=== PATIENT | female | born 1940 | race Caucasian/White ===

== ENCOUNTER 2018-07-07 19:11 | Inpatient (IN) ==
[2018-07-07] MEDS ORDERED: IBUPROFEN 800 MG TABLET PO STA (19:33)
[2018-07-07] MEDS ORDERED: SODIUM CHLORIDE 0.9% 500 ML IV STA (19:33)
[2018-07-07] MEDS ORDERED: ALBUTEROL/IPRATROPIUM 3 ML NEB RESP TX STA (20:24)
[2018-07-07 20:25] LABS: Basophils % 0.2 % (0.0-0.8); Hematocrit 37.2 VOL% (35.7-47.0); Immature Granulocytes % 0.7 %; Immature Granulocytes Absolute 0.07 #; Lymphocytes # 1.1 10*3/uL (1.4-4.0); Lymphocytes % 10.5 % (21.3-54.2); Mean Corpuscular HGB Conc 32.3 GM/DL (32-36); Mean Corpuscular Hemoglobin 31 PG (27-34); Mean Corpuscular Volume 95.1 FL (87-102); Mean Platelet Volume 11.2 FL (9.6-12.0); Monocytes # 0.7 10*3/uL (0.11-0.8); Monocytes % 6.3 % (1.7-12.7); Neutrophils # 8.8 10*3/uL (1.4-7.4); Neutrophils % 82.3 % (38.7-73.9); Platelet Count 135 T/CUMM (130-400); Red Blood Count 3.91 MC/CUMM (3.8-5.5); Red Cell Distribution Width 12.6 % (9.3-17.3); White Blood Count 10.7 T/CUMM (4-12)
[2018-07-07] MEDS ORDERED: cefTRIAXone 1,000 MG in SODIUM CHLORIDE 0.9% 100 ML IV STA (20:25)
[2018-07-07] MEDS ORDERED: AZITHROMYCIN INJ 500 MG in SODIUM CHLORIDE 0.9% 250 ML IV STA (20:25)
[2018-07-07 20:34] LABS: INR 0.9
[2018-07-07 20:40] LABS: Apearance,Urine CLOUDY (Clear); Bilirubin,Urine Negative (Negative); Blood, Urine Small mg/dL (Negative); Glucose,Urine (UA) Negative (Negative); Hyaline Casts,Urine 4 /LPF (0-3); Ketones,Urine 5 mg/dL (Negative); Mucus,Urine Occasional /LPF (Occasional); Nitrite,Urine Negative (Negative); Protein,Urine 30 MG/DL; RBC,Urine 2 /HPF (0-4); Squamous Epithelial Cell,Urine Occasional /HPF (0-10); Urine Color Amber (Yellow); Urine Urobilinogen < 2.0 EU/DL (0.2-1.0); WBC,Urine 5 /HPF (0-6)
[2018-07-07 20:44] LABS: Alanine Aminotransferase 26 U/L (13-56); Albumin 3.3 G/DL (3.4-5.0); Alkaline Phosphatase 63 U/L (45-117); Aspartate Amino Transferase 67 U/L (0-37); Blood Urea Nitrogen 27 MG/DL (7-18); Calcium 8.8 MG/DL (8.5-10.1); Glucose 92 MG/DL (74-106); Osmolality,Calculated 272.2 MOS/KG (273-304); Potassium 4.1 MMOL/L (3.5-5.1); Sodium 134 MMOL/L (136-145); Total Protein 6.9 G/DL (6.4-8.3); Troponin I < 0.015 NG/ML (0.00-0.045)
[2018-07-07 20:47] LABS: Band Neutrophils 5 % (0-10); Lymphocytes 9 % (20-55); Platelet Estimate Normal; Segmented Neutrophils 82 % (50-85); Total Cells Counted 100
[2018-07-07 20:48] LABS: Hypochromasia Slight
[2018-07-07] MEDS ORDERED: ACETAMINOPHEN 325 MG TABLET PO PRN (21:21)
[2018-07-07] MEDS ORDERED: ONDANSETRON 4 MG/2 ML VIAL IV PRN (21:21)
[2018-07-07] MEDS ORDERED: guaiFENesin/DM ER 600-30 MG TABLET PO PRN (21:21)
[2018-07-07] MEDS ORDERED: POLYETHYLENE GLYCOL POWDER 17 GM PACK PO PRN (22:06)
[2018-07-07] MEDS ORDERED: FAMOTIDINE 20 MG TABLET PO PRN (22:06)
[2018-07-07] MEDS ORDERED: NON-FORMULARY MEDICATION (Alendronate Sodium [Alendronate Sodium] 70 MG) PO SCH (22:15)
[2018-07-07] MEDS ORDERED: oxyCODONE/ACETAMINOPHEN 5-325 MG TABLET PO PRN (22:47)
[2018-07-07] MEDS: LACTATED RINGERS 1,000 ML IV SCH (23:13)
[2018-07-07] MEDS: GABAPENTIN 400 MG CAPSULE PO SCH (23:15)
[2018-07-08] MEDS: ALBUTEROL/IPRATROPIUM 3 ML NEB RESP TX SCH ×4 (00:25→19:51)
[2018-07-08] MEDS: ZALEPLON 5 MG CAPSULE PO PRN ×2 (00:45→21:22)
[2018-07-08 05:13] LABS: Basophils % 0.3 % (0.0-0.8); Hematocrit 32.9 VOL% (35.7-47.0); Hemoglobin 10.5 GM/DL (12.0-16.0); Immature Granulocytes % 0.3 %; Immature Granulocytes Absolute 0.02 #; Lymphocytes # 1.6 10*3/uL (1.4-4.0); Lymphocytes % 20.5 % (21.3-54.2); Mean Corpuscular HGB Conc 31.9 GM/DL (32-36); Mean Corpuscular Hemoglobin 30 PG (27-34); Mean Corpuscular Volume 94.8 FL (87-102); Mean Platelet Volume 11.1 FL (9.6-12.0); Monocytes # 0.4 10*3/uL (0.11-0.8); Neutrophils # 5.7 10*3/uL (1.4-7.4); Neutrophils % 73.9 % (38.7-73.9); Platelet Count 115 T/CUMM (130-400); Red Blood Count 3.47 MC/CUMM (3.8-5.5); Red Cell Distribution Width 12.6 % (9.3-17.3); White Blood Count 7.7 T/CUMM (4-12)
[2018-07-08 05:27] LABS: Calcium 8.1 MG/DL (8.5-10.1); Osmolality,Calculated 276.8 MOS/KG (273-304); Potassium 3.7 MMOL/L (3.5-5.1)
[2018-07-08 05:51] LABS: Band Neutrophils 2 % (0-10); Lymphocytes 23 % (20-55); Platelet Estimate Adequate; Segmented Neutrophils 73 % (50-85); Total Cells Counted 100
[2018-07-08] MEDS: GABAPENTIN 400 MG CAPSULE PO SCH ×3 (06:27→21:25)
[2018-07-08] MEDS ORDERED: INFLUENZA VIRUS VACCINE 0.5 ML SYRINGE IM ONE (09:00)
[2018-07-08] MEDS: ENOXAPARIN 40 MG/0.4 ML SYRINGE SUBCUT SCH (10:12)
[2018-07-08] MEDS: MORPHINE ER 15 MG TABLET PO SCH ×2 (10:16→21:22)
[2018-07-08] MEDS: DOCUSATE SODIUM 100 MG CAPSULE PO SCH ×2 (10:16→21:22)
[2018-07-08] MEDS: LACTATED RINGERS 1,000 ML IV SCH ×2 (10:19→21:29)
[2018-07-08] MEDS: AZITHROMYCIN 250 MG TABLET PO SCH (21:21)
[2018-07-08] MEDS: cefTRIAXone 1,000 MG in SYRINGE 1 EACH IV SCH (22:29)
[2018-07-09] MEDS: ALBUTEROL/IPRATROPIUM 3 ML NEB RESP TX SCH ×4 (00:07→18:54)
[2018-07-09] MEDS: GABAPENTIN 400 MG CAPSULE PO SCH ×3 (07:27→21:42)
[2018-07-09] MEDS: DOCUSATE SODIUM 100 MG CAPSULE PO SCH ×2 (08:28→21:40)
[2018-07-09] MEDS: ENOXAPARIN 40 MG/0.4 ML SYRINGE SUBCUT SCH (08:28)
[2018-07-09] MEDS: MORPHINE ER 15 MG TABLET PO SCH ×2 (08:28→21:40)
[2018-07-09] MEDS: LACTATED RINGERS 1,000 ML IV SCH (15:12)
[2018-07-09] MEDS: AZITHROMYCIN 250 MG TABLET PO SCH (21:41)
[2018-07-09] MEDS: cefTRIAXone 1,000 MG in SYRINGE 1 EACH IV SCH (21:42)
[2018-07-10] MEDS: LACTATED RINGERS 1,000 ML IV SCH ×3 (00:53→19:20)
[2018-07-10] MEDS: ALBUTEROL/IPRATROPIUM 3 ML NEB RESP TX SCH ×4 (02:12→19:50)
[2018-07-10] MEDS: GABAPENTIN 400 MG CAPSULE PO SCH ×3 (05:54→19:44)
[2018-07-10] MEDS: DOCUSATE SODIUM 100 MG CAPSULE PO SCH ×2 (09:18→19:44)
[2018-07-10] MEDS: ENOXAPARIN 40 MG/0.4 ML SYRINGE SUBCUT SCH (09:18)
[2018-07-10] MEDS: MORPHINE ER 15 MG TABLET PO SCH ×3 (09:18→20:42)
[2018-07-10] MEDS: cefTRIAXone 1,000 MG in SYRINGE 1 EACH IV SCH (23:10)
[2018-07-10] MEDS: AZITHROMYCIN 250 MG TABLET PO SCH (23:17)
[2018-07-11] MEDS: DOCUSATE SODIUM 100 MG CAPSULE PO SCH ×3 (00:13→20:32)
[2018-07-11] MEDS: GABAPENTIN 400 MG CAPSULE PO SCH ×4 (00:14→20:32)
[2018-07-11] MEDS: ALBUTEROL/IPRATROPIUM 3 ML NEB RESP TX SCH ×4 (01:46→19:56)
[2018-07-11] MEDS: LACTATED RINGERS 1,000 ML IV SCH ×2 (05:23→17:18)
[2018-07-11] MEDS: ENOXAPARIN 40 MG/0.4 ML SYRINGE SUBCUT SCH (09:05)
[2018-07-11] MEDS: MORPHINE ER 15 MG TABLET PO SCH ×2 (09:06→20:32)
[2018-07-11] MEDS: AZITHROMYCIN 250 MG TABLET PO SCH (20:31)
[2018-07-11] MEDS: cefTRIAXone 1,000 MG in SYRINGE 1 EACH IV SCH (20:33)
[2018-07-12] MEDS: ALBUTEROL/IPRATROPIUM 3 ML NEB RESP TX SCH ×2 (01:25→06:55)
[2018-07-12] MEDS: GABAPENTIN 400 MG CAPSULE PO SCH (05:27)
[2018-07-12] MEDS: LACTATED RINGERS 1,000 ML IV SCH (05:41)
[2018-07-12] MEDS: ENOXAPARIN 40 MG/0.4 ML SYRINGE SUBCUT SCH (09:23)
[2018-07-12] MEDS: DOCUSATE SODIUM 100 MG CAPSULE PO SCH (09:23)
[2018-07-12] MEDS: MORPHINE ER 15 MG TABLET PO SCH (09:43)
[2018-07-12 11:22] VITALS: BP 126/63
== END 2018-07-12 12:45 | disposition hospice, home (50) | DRG 195 ==
LOC: N.ED 19:11 → SUATTDRO 21:21 → N.EDINP 21:21 → N.2E 22:39
PROVIDERS: ADMIT Internal Medicine Geriatric Medicine; ATTEND Internal Medicine

== ENCOUNTER 2018-07-29 09:02 | Observation (INO) ==
[2018-07-29] MEDS ORDERED: ONDANSETRON 4 MG/2 ML VIAL IV PRN (09:10)
[2018-07-29 09:47] LABS: Basophils # 0.1 10*3/uL (0.0-0.2); Eosinophils # 0.2 10*3/uL (0.0-0.87); Eosinophils % 3.3 % (0.00-10.9); Hematocrit 34.8 VOL% (35.7-47.0); Hemoglobin 11.1 GM/DL (12.0-16.0); Immature Granulocytes % 0.2 %; Immature Granulocytes Absolute 0.01 #; Lymphocytes # 1.6 10*3/uL (1.4-4.0); Lymphocytes % 31.8 % (21.3-54.2); Mean Corpuscular HGB Conc 31.9 GM/DL (32-36); Mean Corpuscular Hemoglobin 31 PG (27-34); Mean Corpuscular Volume 96.1 FL (87-102); Mean Platelet Volume 11.2 FL (9.6-12.0); Monocytes # 0.6 10*3/uL (0.11-0.8); Monocytes % 11.2 % (1.7-12.7); Neutrophils # 2.7 10*3/uL (1.4-7.4); Neutrophils % 52.5 % (38.7-73.9); Platelet Count 172 T/CUMM (130-400); Red Blood Count 3.62 MC/CUMM (3.8-5.5); Red Cell Distribution Width 13.3 % (9.3-17.3); White Blood Count 5.1 T/CUMM (4-12)
[2018-07-29 10:14] LABS: Albumin 3.3 G/DL (3.4-5.0); Bilirubin,Total 0.4 MG/DL (0.2-1.0); Calcium 8.9 MG/DL (8.5-10.1); Osmolality,Calculated 284.8 MOS/KG (273-304); Potassium 3.6 MMOL/L (3.5-5.1); Total Protein 6.4 G/DL (6.4-8.3)
[2018-07-29] MEDS: DEXTROSE 5% NACL 0.9% 1,000 ML IV SCH (12:32)
[2018-07-29] MEDS: ACETAMINOPHEN 325 MG TABLET PO PRN ×2 (12:33→17:46)
[2018-07-29] MEDS: GABAPENTIN 400 MG CAPSULE PO SCH ×2 (17:50→20:58)
[2018-07-29] MEDS: MEGESTROL ES 125 MG/ML 30 ML/BOTTLE PO SCH (17:51)
[2018-07-29] MEDS: DOCUSATE SODIUM 100 MG CAPSULE PO SCH (20:58)
[2018-07-29] MEDS: MORPHINE ER 15 MG TABLET PO SCH (20:59)
[2018-07-29] MEDS ORDERED: DONEPEZIL 10 MG TABLET PO SCH (21:00)
[2018-07-29] MEDS ORDERED: AMITRIPTYLINE 25 MG TABLET PO SCH (21:00)
[2018-07-29] MEDS ORDERED: FAMOTIDINE 20 MG TABLET PO PRN (21:00)
[2018-07-29 22:06] LABS: Apearance,Urine Slightly Hazy (Clear); Bilirubin,Urine Negative (Negative); Blood, Urine Negative (Negative); Glucose,Urine (UA) Negative (Negative); Ketones,Urine Negative (Negative); Nitrite,Urine Negative (Negative); Protein,Urine Negative; RBC,Urine <1 /HPF (0-4); Squamous Epithelial Cell,Urine Occasional /HPF (0-10); Urine Color Straw (Yellow); Urine Specific Gravity 1.006 (1.001-1.035); Urine Urobilinogen < 2.0 EU/DL (0.2-1.0); WBC,Urine 11 /HPF (0-6)
[2018-07-30] MEDS: GABAPENTIN 400 MG CAPSULE PO SCH (07:16)
[2018-07-30] MEDS: MEGESTROL ES 125 MG/ML 30 ML/BOTTLE PO SCH (08:32)
[2018-07-30] MEDS: DOCUSATE SODIUM 100 MG CAPSULE PO SCH (08:32)
[2018-07-30] MEDS: MORPHINE ER 15 MG TABLET PO SCH (08:32)
[2018-07-30] MEDS ORDERED: PANTOPRAZOLE 40 MG TABLET PO SCH (09:00)
[2018-07-30 09:08] VITALS: BP 139/82
[2018-07-30] MEDS: DEXTROSE 5% NACL 0.9% 1,000 ML IV SCH (09:45)
== END 2018-07-30 10:15 | disposition left against medical advice (07) ==
LOC: N.4E → SUPCPDRO 09:02
PROVIDERS: ADMIT Family Medicine; ATTEND Family Medicine